=== PATIENT | male | born 1930 | race Caucasian/White ===

== ENCOUNTER 2016-08-13 08:04 | Day surgery (SDC) | payer MEDICARE, BC ==
[~2016-08-13 08:04] MED LIST: ASPI81 PO; B-12100T2 PO; CADU10TA PO; CHRO500T4 PO; CO-E100C PO; FISH1000 PO; FOLI200T PO; GARL1500 PO; NAPR-571 PO; NEBI5 PO; PRESCAP5 PO; SPIRCAP INH; TRAV0.00 EACH EYE; VITD400 PO
[2016-08-13] MEDS ORDERED: VANCOMYCIN 1000 MG/NS 250 ML IV SCH ×2 (08:30)
[2016-08-13] MEDS ORDERED: ceFAZolin 2 GM PREMIX 50 ML IV SCH (08:30)
[2016-08-13] MEDS ORDERED: MUPIROCIN 2% OINT 1 APPLIC/GM SYR NASAL SCH (08:30)
[2016-08-13] MEDS ORDERED: NO Heparin, Lovenox, Coumadin at least 12 hours prior to procedure. XX PRN (08:30)
[2016-08-13] MEDS ORDERED: METO25TA3 PO (08:40)
[2016-08-13] MEDS ORDERED: COENPOW21 PO (08:40)
[2016-08-13] MEDS ORDERED: TIOT1AER INH (08:40)
[2016-08-13] MEDS ORDERED: TRAV0.00 EACH EYE (08:40)
[2016-08-13] MEDS ORDERED: LIPI10TA PO (08:40)
[2016-08-13] MEDS ORDERED: TIMO5SOL EACH EYE (08:40)
[2016-08-13] MEDS ORDERED: home oxygen NASAL (08:40)
[2016-08-13] MEDS ORDERED: ASPI1TAB69 PO (08:40)
[2016-08-13] MEDS ORDERED: OMEG100010 PO (08:40)
[2016-08-13] MEDS ORDERED: SPIR25TA PO (08:40)
[2016-08-13] MEDS ORDERED: ACET1CAP PO (08:40)
[2016-08-13] MEDS ORDERED: M2 M100C PO (08:41)
[2016-08-13] MEDS ORDERED: FOLI1CAP7 PO (08:41)
[2016-08-13] MEDS ORDERED: ZINC10LO4 PO (08:41)
[2016-08-13] MEDS ORDERED: NAPR250T PO (08:41)
[2016-08-13] MEDS ORDERED: VITA10002 PO (08:41)
[2016-08-13] MEDS ORDERED: VITA100036 PO (08:41)
[2016-08-13] MEDS ORDERED: OCUVTAB4 PO (08:41)
[2016-08-13] MEDS ORDERED: MIDAZOLAM HCL 2 MG/2 ML VIAL ONE (08:56)
[2016-08-13] MEDS: POVIDONE IODINE 5% (ANTISEPSIS KIT) 4 APPLICATIONS EACH NARE SCH ×2 (08:56→09:30)
[2016-08-13] MEDS: CHLORHEXIDINE GLUCONATE 2 % 1 PACK (2 CLOTHS) TOP SCH ×2 (08:56→09:30)
[2016-08-13] MEDS ORDERED: 1/2 NS 1000 ML IV SCH (09:00)
--- NOTE | 2016-08-14 16:57 | MP ---
cc: KETTY MORALES M.D. DATE OF SURGERY: 08/13/2016. PREOPERATIVE DIAGNOSIS: Sick sinus syndrome, syncope. POSTOPERATIVE DIAGNOSIS: Sick sinus syndrome, syncope. OPERATIVE PROCEDURE PERFORMED: Implantation of a loop recorder. SURGEON: Ketty Morales MD. ANESTHESIA: Intravenous Versed and fentanyl for awake sedation with 1% Xylocaine local. COMPLICATIONS: None. ESTIMATED BLOOD LOSS: None. DESCRIPTION OF THE PROCEDURE IN DETAIL: The patient was brought to the outpatient cardiac unit and following informed consent, he received awake sedation with intravenous Versed and fentanyl. 15 mL of 1% Xylocaine was used for local anesthesia. A jorge was made in the fourth intercostal space. The [employer] Implantable Loop Recorder was placed in the usual fashion. The incision was closed with Steri-Strips dressing and a pressure dressing. He tolerated the procedure well. There were no immediate complications. The device is a [employer] Reveal LINQ, model #LNQ11, serial number [id number]. Initial R wave amplitude is 0.3 mV. The device was programmed and the patient will be discharged to home when ambulatory and stable with followup arranged. I discussed the plans with the patient and his family. MD ZENIA Maharaj/RAISA /10:39 AM /4:54 PM
== END 2016-08-13 11:45 | disposition home or self-care (01) ==
LOC: HDOC 08:04 → HDIC 08:04 → HDOC 11:45
PROVIDERS: ATTEND Internal Medicine Interventional Cardiology
DX: I49.5 Sick sinus syndrome (principal); R55 Syncope and collapse; I10 Essential (primary) hypertension; J44.9 Chronic obstructive pulmonary disease, unspecified; I25.10 Atherosclerotic heart disease of native coronary artery without angina pectoris; Z95.1 Presence of aortocoronary bypass graft
CPT/HCPCS: 33282; C1764; J0690; J2250; J3010